=== PATIENT | female | born 1995 | race African-American/Black ===

== ENCOUNTER 2017-10-21 10:20 | Emergency (ER) | payer OTHER ==
[2017-10-21] MEDS: diphenhydrAMINE HCL 25 MG CAPSULE PO (11:57)
[2017-10-21] MEDS: FAMOTIDINE 20 MG TABLET. PO (11:57)
== END 2017-10-21 13:25 | disposition home or self-care (01) ==
LOC: ER 10:20
DX: L50.0 Allergic urticaria (principal)
CPT/HCPCS: 99283; Q0163